=== PATIENT | male | born 1960 | race Caucasian/White ===

== ENCOUNTER 2017-02-01 01:38 | Emergency (ER) | payer BC, OTHER ==
[2017-02-01] MEDS ORDERED: Ketorolac 10 MG Tab PO ONE (02:18)
--- NOTE | 2017-02-01 02:21 | EDM.PDOC ---
ED HPI GENERAL MEDICAL PROBLEM - General Chief Complaint: Upper Extremity Injury/Pain Stated Complaint: left shoulder pain Time Seen by Provider: 02/01/17 01:51 Source of Information: Reports: Patient History Limitations: Reports: No Limitations - History of Present Illness INITIAL COMMENTS - FREE TEXT/NARRATIVE: Patient felt popping sensation followed by pain in left shoulder when pushing object at work. Whole arm feels "funny". Denies prior history of injury to shoulder. No other complaints. left shoulder Pain Score (Numeric/FACES): 5 - Related Data Allergies Allergy/AdvReac Type Severity Reaction Status Date / Time No Known Allergies Allergy Verified 02/01/17 01:51 Home Meds: Home Meds . [No Known Home Meds] 02/01/17 [History] Social & Family History - Tobacco Use Smoking Status *Q: Never Smoker - Alcohol Use Alcohol Use Comment: Rare use of alcohol at social events. - Recreational Drug Use Recreational Drug Use: No Drug Use in Last 12 Months: No Review of Systems - Review of Systems Review Of Systems: ROS reveals no pertinent complaints other than HPI. ED EXAM, GENERAL - Physical Exam Exam: See Below Exam Limited By: No Limitations General Appearance: Alert, WD/WN, No Apparent Distress Eye Exam: Bilateral Eye: EOMI, PERRL Head: Atraumatic, Normocephalic Neck: Supple Respiratory/Chest: No Respiratory Distress Peripheral Pulses: 2+: Radial (L), Radial (R) Extremities: Normal Range of Motion, Normal Capillary Refill, Other (tender with palpation over anterior and lateral AC joint left shoulder. Arm/shoulder otherwise non-tender. Pain in same area with abduction laterally, moreso when abducts against resistance. Retains full ROM of shoulder however. Arm is otherwise non-tender. NVI. No focal deficits identified although patient says that arm feels a bit off in a glove/stocking distribution. Describes it as mildly numb sensation. No swelling or bruising noted.) Neurological: Alert, Oriented, Normal Cognition, Normal Gait, No Motor/Sensory Deficits Psychiatric: Normal Affect, Normal Mood Skin Exam: Warm, Dry, Intact, Normal Color Course - Vital Signs Last Recorded V/S: Last Vital Signs Temp 36.8 C 02/01/17 01:39 Pulse 65 02/01/17 01:39 Resp 16 02/01/17 01:39 BP 174/93 H 02/01/17 01:39 Pulse Ox 99 02/01/17 01:39 - Orders/Labs/Meds Orders: Active Orders 24 hr Category Date Time Status Shoulder Comp Lt [CR] Stat Exams 02/01/17 01:51 Taken Meds: Medications Discontinued Medications Generic Name Dose Route Start Last Admin Trade Name John PRN Reason Stop Dose Admin Ketorolac Tromethamine 10 mg 02/01/17 02:18 Toradol PO 02/01/17 02:19 ONETIME ONE - Radiology Interpretation Free Text/Narrative:: Xray shows some degenerative changes, no acute fracture identified. - Re-Assessments/Exams Free Text/Narrative Re-Assessment/Exam: 02/01/17 02:32 Conservative treatment planned. No work for 24 hours. Patient to get rechecked Tuesday at primary clinic. He will need to call tomorrow and make appointment. Further restrictions and plans can be formulated at recheck if indicated. May be simple strain/sprain of shoulder. However, cannot rule out rotator cuff injury. BP elevated tonight. Will recommend patient get that rechecked several times over the next month and follow up with primary provider if it remains above normal range. Departure - Departure Time of Disposition: Disposition: Home, Self-Care 01 Condition: Good Clinical Impression: Acute pain of left shoulder - Discharge Information Forms: ED Department Discharge Additional Instructions: Rest shoulder until you are able to get rechecked on Tuesday with primary clinic. Additional restrictions can be determined at that time if needed. You may need additional imaging, such as MRI, to look for rotator cuff injury or similar injury of the shoulder. This can be scheduled through your primary provider. Application of ice on sore areas may be helpful, 10 minutes every 1-2 hours. Tylenol can be used for pain. Ibuprofen or Aleve help with pain and inflammation. - My Orders Last 24 Hours: My Active Orders 02/01/17 01:51 Shoulder Comp Lt [CR] Stat - Assessment/Plan Last 24 Hours: My Active Orders 02/01/17 01:51 Shoulder Comp Lt [CR] Stat
[2017-02-01 02:38] VITALS: BP 156/94
== END 2017-02-01 02:45 | disposition home or self-care (01) ==
LOC: LL.ED 01:38
DX: M25.512 Pain in left shoulder (principal)
CPT/HCPCS: 73030; 99283; A9270

== ENCOUNTER 2020-09-05 22:22 | Emergency (ER) | payer OTHER ==
[2020-09-05 22:31] VITALS: BP 141/99; PULSE 82
--- NOTE | 2020-09-05 22:32 | EDM.PDOC ---
ED HPI GENERAL MEDICAL PROBLEM - General Chief Complaint: Upper Extremity Injury/Pain Stated Complaint: right second finger pain Time Seen by Provider: 09/05/20 22:30 Source of Information: Reports: Patient, Old Records ([facility] EMR. No paper hospital chart available.) History Limitations: Reports: No Limitations - History of Present Illness INITIAL COMMENTS - FREE TEXT/NARRATIVE: The patient was brought to the emergency room via transport vehicle from [facility] for evaluation of a Workmen's Compensation injury, which occurred about 9:30 PM this afternoon. The patient accidentally caught his second right finger in an age pattern, which weighs about 80 pounds, with no previous injury to this finger in the past. No treatment or medications prior to arrival. He is left- handed. The patient denies any chest pain/pressure, heart flutter, dizziness, orthostasis, orthopnea, diaphoresis, paresthesias, recent decreased exercise tolerance, or any other anginal-type symptoms. No recent history of abdominal pain, heartburn, nausea, diarrhea, melena, gross hematochezia, or any food intolerance, including fatty foods, etc.. The patient also denies any recent fever, cough, wheezing, dyspnea, etc.. He denies any fall, neck/back pain, neurological deficits, or other complaints or injuries. Onset: Today, Sudden Onset Date: 09/05/20 Onset Time: 21:30 Duration: Constant Location: Reports: Upper Extremity, Right. Denies: Head, Face, Neck, Chest, Abdomen, Back, Pelvis, Upper Extremity, Left, Lower Extremity, Right, Generalized, Radiates to Quality: Reports: Same as Previous Episode, Throbbing Severity: Moderate Improves with: Reports: None Worsens with: Reports: None Context: Reports: Trauma (As above). Denies: Sick Contact Associated Symptoms: Denies: Confusion, Chest Pain, Cough, Diaphoresis, Fever/Chills, Headaches, Loss of Appetite, Malaise, Nausea/Vomiting, Shortness of Breath, Syncope, Weakness Treatments PRIZE FIGHTER: Reports: Other (see below) (None) right second digit Pain Score (Numeric/FACES): 6 - Related Data Allergies Allergy/AdvReac Type Severity Reaction Status Date / Time No Known Allergies Allergy Verified 09/05/20 22:24 Home Meds: Home Meds Aspirin [Children's Aspirin] 81 mg PO DAILY 09/05/20 [History] Past Medical History Cardiovascular History: Reports: Hypertension Musculoskeletal History: Reports: Osteoarthritis Endocrine/Metabolic History: Reports: Obesity/BMI 30+ - Past Surgical History Musculoskeletal Surgical History: Reports: Other (See Below) Other Musculoskeletal Surgeries/Procedures:: pt reports he has had multiple surgeries to fingers in left hand from work injuries Social & Family History - Tobacco Use Tobacco Use Status *Q: Never Tobacco User Tobacco Use Within Last Twelve Months: No Used Tobacco, but Quit: No Smoking Cessation Information Provided To Patient: No Second Hand Smoke Exposure: No Second Hand Smoke Education Provided: No - Living Situation & Occupation Occupation: Employed ([employer]) Review of Systems - Review of Systems Review Of Systems: Comprehensive ROS is negative, except as noted in HPI. ED EXAM, GENERAL - Physical Exam Exam: See Below Exam Limited By: No Limitations General Appearance: Alert, WD/WN, No Apparent Distress Head: Atraumatic, Normocephalic Neck: Normal Inspection, Supple, Non-Tender, Full Range of Motion. No: Lymphadenopathy (L), Lymphadenopathy (R), Thyromegaly Respiratory/Chest: No Respiratory Distress, Lungs Clear, Normal Breath Sounds, No Accessory Muscle Use, Chest Non-Tender. No: Pleural Rub, Retractions Cardiovascular: Normal Peripheral Pulses, Regular Rate, Rhythm, No Edema, No Gallop, No JVD, No Murmur, No Rub. No: Gallop/S3, Gallop/S4, Friction Rub Peripheral Pulses: 2+: Radial (L), Radial (R) GI/Abdominal: Normal Bowel Sounds, Soft, Non-Tender, No Organomegaly, No Distention, No Abnormal Bruit, No Mass, Pelvis Stable, Other (Obese). No: Guarding (Male) Exam: Deferred Rectal (Males) Exam: Deferred Back Exam: Normal Inspection, Full Range of Motion. No: CVA Tenderness (L), CVA Tenderness (R), Muscle Spasm Extremities: No Pedal Edema, Normal Capillary Refill, Limited Range of Motion (As above). No: Non-Tender (Mild tenderness and ecchymosis over the distal phalanx of digit #2 of the right hand no crepitation, deformity, evidence of foreign body, etc. No joint effusion. Mild limited decreased at range of motion. Mild beginning subungual hematoma), Yahaira's Sign Neurological: Alert, Oriented, CN II-XII Intact, Normal Cognition, Normal Gait, Normal Reflexes, No Motor/Sensory Deficits Psychiatric: Normal Affect, Normal Mood Skin Exam: Warm, Dry, Intact, Normal Color, No Rash, Ecchymosis (As above). No: Wound/Incision Lymphatic: No Adenopathy ED TRAUMA EXTREMITY PROCEDURES - Splinting Right 2nd Digit Pre-Procedure NV Status: Normal Post-Procedure NV Status: Normal Splint Material: Aluminum-Foam (Premade padded finger splint) Splint Design: Extensor (And flexion) Applied & Form Fitted By: Nurse Provider Post-Splint Application NV Check: NV Status Normal, Good Position Complications: No Course - Vital Signs Last Recorded V/S: Last Vital Signs Temp 36.5 C 09/05/20 22:26 Pulse 82 09/05/20 22:26 Resp 16 09/05/20 22:26 BP 141/99 H 09/05/20 22:26 Pulse Ox 98 09/05/20 22:26 Vital Signs - 24 hr 09/05/20 22:26 Temperature [ 36.5 C Temporal] Pulse, 82 Peripheral [ Left Pulse Oximetry] Respiratory 16 Rate Blood Pressure 141/99 H [Left Upper Arm ] O2 Sat by Pulse 98 Oximetry - Orders/Labs/Meds Orders: Active Orders 24 hr Category Date Time Status Fingers Second Digit Rt F6 [CR] Stat Exams 09/05/20 22:32 Ordered Obtain Past Medical Record [OM.PC] Routine Oth 09/05/20 22:32 Active Labs: None Meds: None - Radiology Interpretation Free Text/Narrative:: X-rays of digit #2 of the right hand, complete, shows evidence of a nonangulated nondisplaced proximal fracture of the distal phalanx with some minimal joint involvement of the DIP. No foreign body, dislocation, etc. Departure - Departure Time of Disposition: 22:58 Disposition: Home, Self-Care 01 Clinical Impression: Finger fracture, right Qualifiers: Encounter type: initial encounter Finger: index finger Fracture type: closed Phalanx: distal Fracture alignment: nondisplaced Qualified Code(s): S62.660A - Nondisplaced fracture of distal phalanx of right index finger, initial encounter for closed fracture Hypertension Qualifiers: Hypertension type: essential hypertension Qualified Code(s): I10 - Essential (primary) hypertension Osteoarthritis Qualifiers: Osteoarthritis location: multiple joints Osteoarthritis type: primary Qualified Code(s): M89.49 - Other hypertrophic osteoarthropathy, multiple sites - Discharge Information *PRESCRIPTION DRUG MONITORING PROGRAM REVIEWED*: Not Applicable *COPY OF PRESCRIPTION DRUG MONITORING REPORT IN PATIENT RYLIE: Not Applicable Instructions: Finger Fracture, Adult, [id number] Forms: ED Department Discharge Additional Instructions: 1. Followup with your regular provider in 7-10 days as directed with recommended repeat x-rays of your second finger of the right hand at that time. Bring these discharge instructions with you to that visit. 2. Tylenol 650 mg by mouth every 4 hours and/or OTC ibuprofen 2-3 tabs by mouth every 6 hours with food as directed./needed. You may stagger these medications for 48-72 hours only, which essentially means that you are receiving a pain medication about every 2 hours. 3. Ice packs as needed 4. Finger splint must be worn at all times with exception of bathing. 5. 10 pound lifting restriction as discussed. 6. Work excuse- See Form 7. Immediately after this visit verify that your cellular telephone's voicemail has been activated and is empty. Also verify that your home telephone's answering machine is operating properly and has space to receive messages. Note that it is sometimes necessary for us to be able to contact you at a later date to discuss your medical care. 8. Please remember that we are ALWAYS here for you and want to answer any questions you may have. Feel free to call the hospital any time and we call you back FÁTIMA. 9. Carry a list of all of your medications including prescription medications, OTC medications, etc. with you at all times. Sepsis Event Note (ED) - Evaluation Sepsis Screening Result: No Definite Risk - Focused Exam Vital Signs: Vital Signs Temp Pulse Resp BP Pulse Ox 09/05/20 22:26 36.5 C 82 16 141/99 H 98 - Problem List & Annotations (1) Finger fracture, right SNOMED Code(s): 93865878 Code(s): S62.609A - FRACTURE OF UNSP PHALANX OF UNSP FINGER, INIT FOR CLOS FX Status: Acute Priority: High Onset Date: 09/05/20 Annotation/Comment:: Proximal distal phalangeal fracture of digit #2 of the right hand as above. Finger splint applied. Activity restrictions, etc. were discussed. Symptomatic relief as per discharge instructions with the patient not wishing to have IM Toradol. [place] work excuse and Workmen's Compensation forms were completed. Qualifiers: Encounter type: initial encounter Finger: index finger Fracture type: closed Phalanx: distal Fracture alignment: nondisplaced Qualified Code(s): S62.660A - Nondisplaced fracture of distal phalanx of right index finger, initial encounter for closed fracture (2) Hypertension SNOMED Code(s): 20885049 Code(s): I10 - ESSENTIAL (PRIMARY) HYPERTENSION Status: Chronic Priority: Medium Annotation/Comment:: The patient has been compliant with his medications, however he is not certain what antihypertensive medications, etc. he is taking at this time. Continue to observe closely by his regular provider with somewhat elevated blood pressure in the emergency room today. Qualifiers: Hypertension type: essential hypertension Qualified Code(s): I10 - Essential (primary) hypertension (3) Osteoarthritis SNOMED Code(s): 669203010 Code(s): M19.90 - UNSPECIFIED OSTEOARTHRITIS, UNSPECIFIED SITE Status: Chronic Priority: Medium Annotation/Comment:: Stable by history with known evidence of other injuries. Qualifiers: Osteoarthritis location: multiple joints Osteoarthritis type: primary Qualified Code(s): M89.49 - Other hypertrophic osteoarthropathy, multiple sites - Problem List Review Problem List Initiated/Reviewed/Updated: Yes - My Orders Last 24 Hours: My Active Orders 09/05/20 22:32 Fingers Second Digit Rt F6 [CR] Stat Obtain Past Medical Record [OM.PC] Routine - Assessment/Plan Last 24 Hours: My Active Orders 09/05/20 22:32 Fingers Second Digit Rt F6 [CR] Stat Obtain Past Medical Record [OM.PC] Routine Assessment:: As above Plan: As above. Extensive precautions were given to the patient, who is in agreement with the treatment plan. See Patient Instructions for further treatment and plan.
== END 2020-09-05 22:58 | disposition home or self-care (01) ==
LOC: LL.ED 22:22
DX: S62.660A Nondisplaced fracture of distal phalanx of right index finger, initial encounter for closed fracture (principal); M89.49 Other hypertrophic osteoarthropathy, multiple sites; I10 Essential (primary) hypertension; E66.9 Obesity, unspecified; Z79.82 Long term (current) use of aspirin; Z68.31 Body mass index [BMI] 31.0-31.9, adult; W23.0XXA Caught, crushed, jammed, or pinched between moving objects, initial encounter
CPT/HCPCS: 73140-F6; 99283; 99283-25